=== PATIENT | male | born 1990 | race Caucasian/White ===

== ENCOUNTER 2018-09-16 08:06 | Emergency (ER) | payer BC, OTHER ==
--- NOTE | 2018-09-16 08:37 | EDM.PDOC ---
ED HPI GENERAL MEDICAL PROBLEM - General Chief Complaint: Lower Extremity Injury/Pain Stated Complaint: knee pain Time Seen by Provider: 09/16/18 08:20 Source of Information: Reports: Patient History Limitations: Reports: No Limitations - History of Present Illness INITIAL COMMENTS - FREE TEXT/NARRATIVE: Patient comes in the emergency department with left knee pain. Patient denies any injury, fall, blunt trauma. He states that he has had knee discomfort for approximately 1 year. The discomfort has increased over the course of the last 1 -2 months. He states that he walked away from his job on Tuesday for he could not do the stairs any longer. He denies any swelling, warmth, ecchymosis, or snapping/popping sensation. Onset: Sudden Location: Reports: Lower Extremity, Left Severity: Mild Improves with: Reports: None Worsens with: Reports: None Associated Symptoms: Reports: No Other Symptoms Knee Pain Score (Numeric/FACES): 5 - Related Data Allergies Allergy/AdvReac Type Severity Reaction Status Date / Time No Known Allergies Allergy Verified 09/16/18 08:20 Home Meds: Home Meds . [No Known Home Meds] 09/16/18 [History] Past Medical History - Past Health History Medical/Surgical History: Denies Medical/Surgical History Review of Systems - Review of Systems Review Of Systems: See Below Constitutional: Reports: No Symptoms Eyes: Reports: No Symptoms Ears: Reports: No Symptoms Nose: Reports: No Symptoms Mouth/Throat: Reports: No Symptoms Respiratory: Reports: No Symptoms Cardiovascular: Reports: No Symptoms GI/Abdominal: Reports: No Symptoms Genitourinary: Reports: No Symptoms Musculoskeletal: Reports: Leg Pain Skin: Reports: No Symptoms Neurological: Reports: No Symptoms Psychiatric: Reports: No Symptoms ED EXAM, GENERAL - Physical Exam Exam: See Below Exam Limited By: No Limitations General Appearance: Alert, WD/WN, No Apparent Distress Head: Atraumatic, Normocephalic Neck: Normal Inspection, Supple, Non-Tender Respiratory/Chest: No Respiratory Distress, Lungs Clear, No Accessory Muscle Use Cardiovascular: Normal Peripheral Pulses, Regular Rate, Rhythm Back Exam: Normal Inspection, Full Range of Motion Extremities: Normal Inspection, Normal Range of Motion, Non-Tender, No Pedal Edema, Normal Capillary Refill, Leg Pain Neurological: Alert, Oriented Psychiatric: Normal Affect, Normal Mood Skin Exam: Warm, Dry, Intact Course - Vital Signs Last Recorded V/S: Last Vital Signs Temp 36.9 C 09/16/18 08:10 Pulse 86 09/16/18 08:10 Resp 16 09/16/18 08:10 BP 129/88 09/16/18 08:10 Pulse Ox 100 09/16/18 08:10 Departure - Departure Time of Disposition: 08:45 Disposition: Home, Self-Care 01 Condition: Good Clinical Impression: Strain of left knee Qualifiers: Encounter type: initial encounter Qualified Code(s): S86.912A - Strain of unspecified muscle(s) and tendon(s) at lower leg level, left leg, initial encounter - Discharge Information *PRESCRIPTION DRUG MONITORING PROGRAM REVIEWED*: Not Applicable *COPY OF PRESCRIPTION DRUG MONITORING REPORT IN PATIENT RADHA: Not Applicable Instructions: Pain Medicine Instructions, [id number], Muscle Strain Forms: ED Department Discharge Additional Instructions: 1. rest 2. can you use ice 20 mins on the left knee 3 times a day 3. Follow up with orthopedic for further testing and evaluation and potentially Physical therapy or MRI. 4. Call the clinic Tuesday [phone] to set up an appointment with orthopedic which comes once a week 5. Can use Tylenol and ibuprofen as needed 6. call with any questions or concerns - Assessment/Plan Assessment:: 1. left knee pain Plan: 1. ROM intact, CMS intact. Ambulating with no difficultly. Assessment negative. No injuries noted. 2. Recommendation for pt to use his brace he has at home and follow up with orthopedic for chronic knee pain not related to injury 3. Education regarding follow up, OTC pain management, and leg exercises provided 4. Education regarding use ice provided 5. All questions and concerns addressed prior to discharge.
== END 2018-09-16 08:40 | disposition home or self-care (01) ==
LOC: VM.ED 08:06
DX: S86.912A Strain of unspecified muscle(s) and tendon(s) at lower leg level, left leg, initial encounter (principal); X58.XXXA Exposure to other specified factors, initial encounter
CPT/HCPCS: 99283

== ENCOUNTER 2018-10-18 05:46 | Emergency (ER) | payer SELFPAY ==
--- NOTE | 2018-10-18 06:12 | EDM.PDOC ---
<Faustino Stack - Last Filed: 10/18/18 06:05> ED HPI GENERAL MEDICAL PROBLEM - General Chief Complaint: Lower Extremity Injury/Pain Stated Complaint: Left hip pain Time Seen by Provider: 10/18/18 06:05 Source of Information: Reports: Patient History Limitations: Reports: No Limitations - History of Present Illness INITIAL COMMENTS - FREE TEXT/NARRATIVE: Patient presents to the ER with complaints of left hip pain that he has had intermittently for the last month. Has not been seen for this previously. No PCP. He denies any current illness. He denies any redness, swelling, warmth to the joint. He has had some left knee pain before this started. No history of hip problems as he was developing and younger. Denies recent fever or illness. Is not sexually active. He denies chest pain, sob, abdominal pain, denies nausea or vomiting. No blood in urine or stool. Regular bowel and bladder habits. Reports pain is worse with movement. Pain is an ache. Onset: Gradual Duration: Intermittent Location: Reports: Lower Extremity, Left Quality: Reports: Ache Severity: Moderate Worsens with: Reports: Movement Associated Symptoms: Reports: No Other Symptoms - Related Data Allergies Allergy/AdvReac Type Severity Reaction Status Date / Time No Known Allergies Allergy Verified 10/18/18 06:16 Home Meds: Home Meds . [No Known Home Meds] 09/16/18 [History] Past Medical History - Past Health History Medical/Surgical History: Denies Medical/Surgical History Review of Systems - Review of Systems Review Of Systems: See Below Constitutional: Reports: No Symptoms Eyes: Reports: No Symptoms Ears: Reports: No Symptoms Nose: Reports: No Symptoms Mouth/Throat: Reports: No Symptoms Respiratory: Reports: No Symptoms Cardiovascular: Reports: No Symptoms GI/Abdominal: Reports: No Symptoms Genitourinary: Reports: No Symptoms Musculoskeletal: Reports: Leg Pain (left) Skin: Reports: No Symptoms Neurological: Reports: No Symptoms Psychiatric: Reports: No Symptoms ED EXAM, GENERAL - Physical Exam Exam: See Below Exam Limited By: No Limitations General Appearance: Alert, WD/WN, No Apparent Distress Eye Exam: Bilateral Eye: EOMI, PERRL Head: Atraumatic, Normocephalic Neck: Normal Inspection, Supple, Non-Tender, Full Range of Motion Respiratory/Chest: No Respiratory Distress, Lungs Clear, Normal Breath Sounds, No Accessory Muscle Use, Chest Non-Tender Cardiovascular: Normal Peripheral Pulses, Regular Rate, Rhythm, No Edema, No Gallop, No JVD, No Murmur, No Rub Peripheral Pulses: 2+: Posterior Tibial (L), Posterior Tibial (R), Dorsalis Pedis (L), Dorsalis Pedis (R) GI/Abdominal: Normal Bowel Sounds, Soft, Non-Tender, No Organomegaly, No Distention, No Abnormal Bruit, No Mass Back Exam: Normal Inspection, Full Range of Motion, NT Extremities: Normal Inspection, Normal Range of Motion, Non-Tender, No Pedal Edema, Normal Capillary Refill, Other (patient states hip pain increases with internal and external rotation) Neurological: Alert, Oriented, CN II-XII Intact, Normal Cognition, Normal Gait, Normal Reflexes, No Motor/Sensory Deficits Psychiatric: Normal Affect, Normal Mood Skin Exam: Warm, Dry, Intact, Normal Color, No Rash Lymphatic: No Adenopathy Course - Vital Signs Last Recorded V/S: Last Vital Signs Temp 36.6 C 10/18/18 05:46 Pulse 77 10/18/18 05:46 Resp 16 10/18/18 05:46 BP 115/88 10/18/18 05:46 Pulse Ox 99 10/18/18 05:46 - Orders/Labs/Meds Orders: Active Orders 24 hr Category Date Time Status Pelvis wo Cont [CT] Stat Exams 10/18/18 06:12 Taken Labs: Laboratory Tests 10/18/18 10/18/18 Range/Units 06:23 06:23 WBC 6.0 (4.0-10.0) x10^3/uL RBC 6.19 H (4.5-6.0) x10^6/uL Hgb 17.1 (14.0-18.0) g/dL Hct 50.7 (40.0-52.0) % MCV 81.9 (78.0-93.0) fL MCH 27.6 (26.0-32.0) pg MCHC 33.7 (32.0-36.0) g/dL RDW Coeff of Cristina 13.3 (10.0-15.0) % Plt Count 241 (130-400) x10^3/uL Neut % (Auto) 51.8 (50.0-80.0) % Lymph % (Auto) 37.8 (25.0-50.0) % Steele % (Auto) 8.2 (2.0-11.0) % Eos % (Auto) 1.7 (0.0-4.0) % Baso % (Auto) 0.5 (0.2-1.2) % C-Reactive Protein < 0.2 (<=0.9) mg/dL Departure - Departure Disposition: Home, Self-Care 01 Clinical Impression: Left hip pain - Discharge Information Instructions: Hip Pain Referrals: PCP,None [Primary Care Provider] - Forms: ED Department Discharge Additional Instructions: 1. Stay well hydrated and rest 2. CT scan of hip is normal, no fracture or dislocations 3. Symptoms most likely muscular, no bone infections seen on CT scan 4. See your PCP for further evaluation and possible treatment <Hubert Smiley - Last Filed: 10/18/18 07:26> ED HPI GENERAL MEDICAL PROBLEM Left hip Pain Score (Numeric/FACES): 5 Course - Radiology Interpretation Free Text/Narrative:: CT Pelvis: No acute or focal abnormality See scanned report in EMR for details CT Results Date: 10/18/18 CT Results Time: 07:02 Departure - Departure Time of Disposition: 07:25 Condition: Good - Discharge Information *PRESCRIPTION DRUG MONITORING PROGRAM REVIEWED*: Not Applicable *COPY OF PRESCRIPTION DRUG MONITORING REPORT IN PATIENT RADHA: Not Applicable - Problem List Review Problem List Initiated/Reviewed/Updated: Yes - Assessment/Plan Assessment:: Left Hip pain Plan: CT scan and assessment findings discussed with patient. No acute emergency found. Recommend establishing care with a PCP for further evaluation and treatment. Continue with OTC Tylenol/Advil. Discussed HEP.
--- NOTE | 2018-10-18 09:26 | CT ---
[id number] CT/CT Pelvis WO IV Exam: CT Pelvis WO IV Indication:LEFT HIP PAIN. Comparison: No prior imaging for comparison. Discussion: Negative for fracture or dislocation. No AVN. No osseous lesion. Moderate colonic stool burden. Other lower abdominal and pelvic viscera is unremarkable. Impression: No acute findings in the pelvis. Vadim Martinez MD 10/18/18 0923 Thank you for allowing us to participate in the care of your patient.
== END 2018-10-18 07:22 | disposition home or self-care (01) ==
LOC: VM.ED 05:46
DX: M25.552 Pain in left hip (principal)
CPT/HCPCS: 36415; 72192; 85025; 86140; 99283-25

== ENCOUNTER 2018-11-19 00:45 | Emergency (ER) | payer SELFPAY ==
[2018-11-19] MEDS ORDERED: LORazepam 0.5 MG Tab PO ONE (00:55)
--- NOTE | 2018-11-19 08:34 | CT ---
[id number] CT/CT Cervical Spine WO IV EXAM: CT Cervical Spine WO IV INDICATION: PAIN IN NECK POST CHIROPRACTIC APPOINTMENT COMPARISON: None. DISCUSSION: No fracture or compression deformity. Vertebral bodies remain in normal alignment. Incidentally noted is an anatomic variant on the left at the left occipital condyle and transverse foramen (series 4 image [id number]). Mild degenerative change across the synchondrosis. Intervertebral disc heights are well-preserved. Lung apices are clear. IMPRESSION: No acute findings in the cervical spine. Vadim Martinez MD 11/19/18 0833 Thank you for allowing us to participate in the care of your patient.
--- NOTE | 2018-11-20 06:11 | EDM.PDOC ---
ED HPI GENERAL MEDICAL PROBLEM - General Chief Complaint: Neck Problem Stated Complaint: Left arm numbness, neck pain Time Seen by Provider: 11/19/18 00:45 Source of Information: Reports: Patient History Limitations: Reports: No Limitations - History of Present Illness INITIAL COMMENTS - FREE TEXT/NARRATIVE: Pt. presents to ER with complaints of neck pain and paresthesia in L upper extremity. He states that he recently was adjusted by a chiropractor. States that the numbness is located to the left arm. He states that he also had some paresthesia in the L lower extremity below the knee but he states that he has had intermittent knee/Leg numbness in the past. Denies any fever or chills. No chest pain or shortness of breath. No difficulty with speech or ambulation. No headache. Onset Date: 11/19/18 Location: Reports: Neck, Upper Extremity, Left neck Pain Score (Numeric/FACES): 3 - Related Data Allergies Allergy/AdvReac Type Severity Reaction Status Date / Time No Known Allergies Allergy Verified 11/19/18 00:59 Home Meds: Home Meds . [No Known Home Meds] 09/16/18 [History] Past Medical History - Past Health History Medical/Surgical History: Denies Medical/Surgical History ED ROS GENERAL - Review of Systems Review Of Systems: See Below Constitutional: Reports: No Symptoms HEENT: Reports: No Symptoms Respiratory: Reports: No Symptoms Cardiovascular: Reports: No Symptoms Endocrine: Reports: No Symptoms GI/Abdominal: Reports: No Symptoms : Reports: No Symptoms Musculoskeletal: Reports: Neck Pain Skin: Reports: No Symptoms Neurological: Reports: Numbness, Paresthesia Psychiatric: Reports: No Symptoms Hematologic/Lymphatic: Reports: No Symptoms Immunologic: Reports: No Symptoms ED EXAM, GENERAL - Physical Exam Exam: See Below Exam Limited By: No Limitations General Appearance: Alert, WD/WN, No Apparent Distress Neck: Normal Inspection, Supple, Non-Tender, Full Range of Motion Respiratory/Chest: No Respiratory Distress, Lungs Clear, Normal Breath Sounds, No Accessory Muscle Use, Chest Non-Tender Cardiovascular: Normal Peripheral Pulses, Regular Rate, Rhythm, No Edema, No Gallop, No JVD, No Murmur, No Rub Extremities: Normal Inspection, Normal Range of Motion, Non-Tender, Normal Capillary Refill, No Pedal Edema Neurological: Alert, Oriented, CN II-XII Intact, Normal Cognition, Normal Gait, Normal Reflexes, Other (complains of intermittent paresthesia in L upper extremity particularly on the lateral aspect. 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 No pronator drift. brachoradialis reflexes 2+ bilaterally. Romberg is negative.) Psychiatric: Normal Affect Course - Vital Signs Last Recorded V/S: Last Vital Signs Temp 37.1 C 11/19/18 00:45 Pulse 101 H 11/19/18 00:45 Resp 16 11/19/18 01:45 BP 140/82 11/19/18 01:45 Pulse Ox 100 11/19/18 00:45 - Orders/Labs/Meds Meds: Medications Discontinued Medications Generic Name Dose Route Start Last Admin Trade Name Freq PRN Reason Stop Dose Admin Lorazepam 0.5 mg 11/19/18 00:55 11/19/18 01:10 Ativan PO 11/19/18 00:56 0.5 mg ONETIME ONE Administration Departure - Departure Time of Disposition: 01:57 Disposition: Home, Self-Care 01 Condition: Good Clinical Impression: Torticollis - Discharge Information Instructions: Acute Torticollis, Adult Referrals: PCP,Unobtain [Primary Care Provider] - Forms: ED Department Discharge Additional Instructions: Home to rest. Tylenol and ibuprofen for discomfort. Follow-up in clinic if you are still having symptoms. - Problem List Review Problem List Initiated/Reviewed/Updated: Yes - Assessment/Plan Plan: Home to rest. Tylenol and ibuprofen for discomfort. Follow-up in clinic if you are still having symptoms.
== END 2018-11-19 01:57 | disposition home or self-care (01) ==
LOC: VM.ED 00:45
DX: M43.6 Torticollis (principal)
CPT/HCPCS: 72125; 99284; A9270; 99283-GF